=== PATIENT | female | born 1965 | race Two or more races ===

== ENCOUNTER 2025-01-23 13:20 | Inpatient (IN) | payer MEDICAID, OTHER ==
[~2025-01-23] VITALS: Ht 172.7 cm; Wt 77.2 kg
[2025-01-23] MEDS ORDERED: MORPHINE SULFATE 4 MG/ML SYR/VIAL IV ONE (13:45)
[2025-01-23 14:26] LABS: Hematocrit 42.0 % (36.0-46.0); Hemoglobin 14.1 g/dL (12.2-16.2); Mean Corpuscular Hemoglobin 30.7 pg (28.0-32.0); Mean Corpuscular Volume 91.6 fL (80.0-100.0); Nucleated Red Blood Cells % 0.0 %
[2025-01-23] MEDS: SODIUM CHLORIDE 0.9% 1,000 ML IVB ONE (14:33)
[2025-01-23] MEDS: ONDANSETRON HCL 4 MG/2 ML VIAL IV ONE (14:33)
[2025-01-23] MEDS: KETOROLAC TROMETH 30 MG/ML 1ML VIAL IV ONE (14:34)
[2025-01-23 14:44] LABS: Chloride 107 mmol/L (98-107); Potassium 3.7 mmol/L (3.5-5.1); Sodium 137 mmol/L (136-145)
[2025-01-23 14:45] LABS: Anion Gap 8 (5-15); Carbon Dioxide 22 mmol/L (20-31)
[2025-01-23 14:46] LABS: Calcium 8.8 mg/dL (8.7-10.4)
[2025-01-23 14:49] LABS: Urine Protein, UAD 1+ (Negative); Urine WBC Clumps PRESENT /hpf (None Seen)
[2025-01-23 14:50] LABS: Glucose 102 mg/dL (74-106)
[2025-01-23 14:51] LABS: BUN/Creatinine Ratio 10.4 (10.0-20.0); Blood Urea Nitrogen 10 mg/dL (9-23)
[2025-01-23] MEDS: CLINDAMYCIN 300MG IV 50 ML IV ONE (15:17)
--- NOTE | 2025-01-23 15:26 | ED.PDOC ---
History of Present Illness HPI Comments 59-year-old female brought by paramedics from [facility] because of kidney stone. Patient went to [facility] last night for severe flank pain 10/10 mostly in the right side. Flank pain associated with nausea vomiting. She was diagnosed with a 8 mm kidney stone for which the hospital did not have any facilities to handle. Patient had fentanyl EN route for pain control. Denies any other symptoms. 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 History Social History Smoker: Non-Smoker Alcohol: Denies ETOH Use Drugs: Denies Drug Use Constitutional: denies: chills, diaphoresis, fatigue, fever, malaise, sweats, weakness, others EENTM: denies: blurred vision, double vision, ear bleeding, ear discharge, ear drainage, ear pain, ear ringing, eye pain, eye redness, hearing loss, mouth pain, mouth swelling, nasal discharge, nose bleeding, nose congestion, nose pain, photophobia, tearing, throat pain, throat swelling, voice changes, others Respiratory: denies: cough, hemoptysis, orthopnea, SOB at rest, shortness of breath, SOB with excertion, stridor, wheezing, others Cardiovascular: denies: chest pain, dizzy spells, diaphoresis, Dyspnea on exertion, edema, irregular heart beat, left arm pain, lightheadedness, palpitations, PND, syncope, others Gastrointestinal: denies: abdomen distended, abdominal pain, blood streaked bowels, constipated, diarrhea, dysphagia, difficulty swallowing, hematemesis, melena, nausea, poor appetite, poor fluid intake, rectal bleeding, rectal pain, vomiting, others Genitourinary: reports: flank pain; denies: abnormal vagina bleeding, burning, dyspareunia, dysuria, frequency, hematuria, incontinence, pain, , vagina discharge, urgency, others Neurological: denies: dizziness, fainting, headache, left sided numbness, left sided weakness, numbness, paresthesia, pre-existing deficit, right sided numbness, right sided weakness, seizure, speech problems, tingling, tremors, weakness, others Musculoskeletal: denies: back pain, gout, joint pain, joint swelling, muscle pain, muscle stiffness, neck pain, others Integumetry: denies: bruises, change in color, change in hair/nails, dryness, laceration, lesions, lumps, rash, wounds, others Allergic/Immunocompromised: denies: Difficulty Healing, Frequent Infections, Hives, Itching, others Hematologic/Lymphatic: denies: anemia, blood clots, easy bleeding, easy bruising, swollen glands, others Endocrine: denies: excessive hunger, excessive sweating, excessive thirst, excessive urination, flushing, intolerance to cold, intolerance to heat, unexplained weight gain, unexplained weight loss, others Psychiatric: denies: anxiety, bipolar disorder, depression, hopeless, panic disorder, schizophrenia, sleepless, suicidal, others Physical Exam General Appearance: Moderate Distress HEENT: Normal ENT Inspection, Pharynx Normal, TMs Normal Neck: Full Range of Motion, Non-Tender, Normal, Normal Inspection Respiratory: Chest Non-Tender, Lungs Clear, No Accessory Muscle Use, No Respiratory Distress, Normal Breath Sounds Cardiovascular: No Edema, No JVD, No Murmur, No Gallop, Normal Peripheral Pulses, Regular Rate/Rhythm Breast Exam: Deferred Gastrointestinal: No Organomegaly, Non Tender, No Pulsatile Mass, Normal Bowel Sounds, Soft Genitalia: Deferred Pelvic: Deferred Rectal: Deferred Extremities: No calf tenderness, Normal capillary refill, Normal inspection, Normal range of motion, Non-tender, No pedal edema Musculoskeletal : Apperance: Normal Neurologic: Alert, back wedger II-XII nml as Tested, No Motor Deficits, Normal Affect, Normal Mood, No Sensory Deficits Cerebellar Function: Normal Reflexes: Normal Skin: Dry, Normal Color, Warm Peripheral Pulses: 3+ Radial (R), 3+ Radial (L) Lymphatic: No Adenopathy Was a procedure done? Was a procedure done?: No Differential Dx Considerations may include: Kidney stone Electrolyte imbalance X-Ray, Labs, Meds, VS Vital Signs Date Time Temp Pulse Resp B/P (MAP) Pulse Ox O2 Delivery O2 Flow Rate FiO2 01/23/25 14:24 132 18 97 Room Air 0 01/23/25 14:17 98.0 128 18 96/64 (75) 97 98.0 01/23/25 13:29 99.3 127 21 104/17 98 99.3 Lab Test 01/23/25 14:40 01/23/25 14:29 01/23/25 14:03 Range/Units Lactic Acid Level Pending Urine Color Yesi H Yellow Urine Clarity Cloudy H Clear Urine pH 6.0 5.0-9.0 Urine Specific [place] 1.015 1.001-1.035 Urine Protein 1+ H Negative Urine Ketones 1+ H Negative Urine Blood 3+ H Negative /uL Urine Nitrite 2+ H Negative Urine Bilirubin Negative Negative Urine Urobilinogen Normal Negative mg/dL Urine Leukocyte Esterase 3+ Negative /uL Urine RBC 385 0 - 4 /hpf Urine WBC Clumps Present None Seen /hpf Urine Microscopic WBC 994 H 0-5 /HPF Urine Squamous Epithelial Cells Few <5 /hpf Urine Bacteria Few H None Seen /hpf Urine Glucose Normal Normal mg/dL White Blood Count 15.2 H 4.4-10.8 10^3/uL Red Blood Count 4.58 4.0-5.20 10^6/uL Hemoglobin 14.1 12.2-16.2 g/dL Hematocrit 42.0 36.0-46.0 % Mean Corpuscular Volume 91.6 80.0-100.0 fL Mean Corpuscular Hemoglobin 30.7 28.0-32.0 pg Mean Corpuscular Hemoglobin Concent 33.5 32.0-36.0 g/dL Red Cell Distribution Width 12.9 11.8-14.3 % Platelet Count 176 140-450 10^3/uL Mean Platelet Volume 7.7 6.9-10.8 fL Neutrophils (%) (Auto) 82.3 H 37.0-80.0 % Lymphocytes (%) (Auto) 7.1 L 10.0-50.0 % Monocytes (%) (Auto) 10.3 0.0-12.0 % Eosinophils (%) (Auto) 0.1 0.0-7.0 % Basophils (%) (Auto) 0.2 0.0-2.0 % Neutrophils # (Auto) 12.5 H 1.6-8.6 10 ^3/uL Lymphocytes # (Auto) 1.1 0.4-5.4 10 ^3/uL Monocytes # (Auto) 1.6 H 0-1.3 10 ^3/uL Eosinophils # (Auto) 0 0-0.8 10 ^3/uL Basophils # (Auto) 0 0-0.2 10 ^3/uL Nucleated Red Blood Cells 0.0 % Sodium Level 137 136-145 mmol/L Potassium Level 3.7 3.5-5.1 mmol/L Chloride Level 107 98-107 mmol/L Carbon Dioxide Level 22 20-31 mmol/L Anion Gap 8 5-15 Blood Urea Nitrogen 10 9-23 mg/dL Creatinine 0.96 0.550-1.02 mg/dL Glomerular Filtration Rate Calc 69 >90 mL/min BUN/Creatinine Ratio 10.4 10.0-20.0 Serum Glucose 102 74-106 mg/dL Calcium Level 8.8 8.7-10.4 mg/dL Current Medications Medications (Trade) Dose Ordered Sig/Mariann Route Start Time Stop Time Status Last Admin Ondansetron HCl (Zofran) 4 mg ONCE ONCE IV 01/23/25 13:45 01/23/25 13:46 DC 01/23/25 14:33 Sodium Chloride 1,000 ml @ 1,000 mls/hr Q1H ONCE IVB 01/23/25 13:45 01/23/25 14:44 DC 01/23/25 14:33 Ketorolac Tromethamine (Toradol Injection) 30 mg ONCE ONCE IV 01/23/25 14:30 01/23/25 14:31 DC 01/23/25 14:34 Ceftriaxone Sodium 50 ml @ 100 mls/hr ONCE ONCE IV 01/23/25 15:00 01/23/25 15:29 01/23/25 15:17 Clindamycin Phosphate 50 ml @ 50 mls/hr ONCE ONCE IV 01/23/25 15:00 01/23/25 15:59 01/23/25 15:17 Patient alert. Vitals stable. Complaining of have flank pain. Answering questions. Moving all extremities. Establish intravenous access. Was given fluids. Possible urosepsis. Was given Rocephin. Was given clindamycin. Reviewed her visit at other hospital. Urology consultation. Explained to the patient. Continue monitoring. Time of 1ST Reevaluation: 15:24 Reevaluation 1ST: Unchanged Patient Education/Counseling: Diagnosis, Treatment, Prognosis, Need For Follow Up Family Education/Counseling: No Family Present SEPSIS Sepsis Screen Date sepsis recognized/suspect: Jan 23, 2025 Time Sepsis recognized/suspect: 1333 Recent Procedure: No On Antibiotic Therapy: Yes Respiratory Rate >20: Yes Heart Rate >90: Yes Temp<36 C (96.8 F) or >38.3 C: No SBP <90 or MAP <65 mmHG: No New Acute Mental Status Change: No Is the patient on CPAP, BIPAP,: No Physician Orders Lactic Acid W/ Reflex Order (01/23/25 14:27) Blood Culture (01/23/25 14:27) Ceftriaxone 1gm/50ml (Rocephin) (01/23/25 15:00) Clindamycin 300mg Iv (Cleocin Iv) (01/23/25 15:00) Vital Signs Date Time Temp Pulse Resp B/P (MAP) Pulse Ox O2 Delivery O2 Flow Rate FiO2 01/23/25 14:24 132 18 97 Room Air 0 01/23/25 14:17 98.0 128 18 96/64 (75) 97 98.0 01/23/25 13:29 99.3 127 21 104/17 98 99.3 Laboratory Tests Test 01/23/25 14:03 01/23/25 14:40 White Blood Count 15.2 10^3/uL (4.4-10.8) H Lactic Acid Level Pending Medications Medications Dose Ordered Sig/Mariann Route Start Time Stop Time Status Last Admin Dose Admin Ceftriaxone Sodium 50 ml @ 100 mls/hr ONCE ONCE IV 01/23/25 15:00 01/23/25 15:29 01/23/25 15:17 Clindamycin Phosphate 50 ml @ 50 mls/hr ONCE ONCE IV 01/23/25 15:00 01/23/25 15:59 01/23/25 15:17 Ketorolac Tromethamine 30 mg ONCE ONCE IV 01/23/25 14:30 01/23/25 14:31 DC 01/23/25 14:34 Ondansetron HCl 4 mg ONCE ONCE IV 01/23/25 13:45 01/23/25 13:46 DC 01/23/25 14:33 Sodium Chloride 1,000 ml @ 1,000 mls/hr Q1H ONCE IVB 01/23/25 13:45 01/23/25 14:44 DC 01/23/25 14:33 Departure 1 Departure Time of Disposition: 15:26 Impression: Primary Impression: Kidney stone Disposition: ADMITTED INPATIENT Admit to: Med Surg Condition: Guarded Critical Care Note Critical Care Time?: Yes (90 min-critical care time only) Stability Stability form required: No Heart Score Heart Score: Heart Score Response (Comments) Value History N/A 0 EKG N/A 0 Age N/A 0 Risk Factors N/A 0 Troponin N/A 0 Total 0 JAYLAN LÓPEZ MD Jan 23, 2025 15:26
[2025-01-23] MEDS ORDERED: DOCUSATE SOD 100 MG CAP PO PRN (16:45)
[2025-01-23] MEDS ORDERED: KETOROLAC TROMETH 30 MG/ML 1ML VIAL IV PRN (16:45)
--- NOTE | 2025-01-23 17:32 | DVHHP2 ---
History of Present Illness Reason for Visit: Right flank pain History of Present Illness Courtney Urena is a 59-year-old female with no significant past medical history who was transferred from [facility] for kidney stones. Patient states she did have kidney stones a few months ago in August and she was seen [place]. The pain went away for months and then returned yesterday around 1400, with associated nausea and dark urine. She states the pain continued to worsen prompting her to go to the hospital. [facility] completed a CT scan that showed a 8mm UPJ stone on the right and a staghorn stone on the left. Past Surgical History: Tubal Ligation Smoke: <1 pack per day ALCOHOL: rare Drugs: Marijuana Lives: Friends Domestic Violence: Neg Review of Systems Constitutional: No: Fever, Chills, Sweats, Weakness, Malaise, Other Eyes: No: Pain, Vision change, Conjunctivae inflammation, Eyelid inflammation, Other, Redness ENT: No: Ear pain, Ear discharge, Nose pain, Nose discharge, Nose congestion, Mouth pain, Mouth swelling, Throat pain, Throat swelling, Other Respiratory: No: Cough, Dry, Shortness of breath, SOB with excertion, Wheezing, Hemoptysis, Pleuritic Pain, Sputum, Wheezing, Other Cardiovascular: No: Chest Pain, Palpitations, Orthopnea, Paroxysmal Noc. Dyspnea, Edema, Lt Headedness, Other Gastrointestinal: Nausea, Abdominal Pain; No: Vomiting, Diarrhea, Constipation, Melena, Hematochezia, Other Genitourinary: No Dysuria, No Frequency, No Incontinence; Hematuria; No Retention, No Other Musculoskeletal: back pain (right flank); No: other, neck pain, shoulder pain, arm pain, hand pain, leg pain, foot pain Skin: No: Rash, Lesions, Jaundice, Bruising, Other Neurological: No: Weakness, Numbness, Incoordination, Change in speech, Confusion, Seizures, Other Allergies: Coded Allergies: NO KNOWN ALLERGIES (Unverified , 01/23/25) Medications Current Medications Medications Dose Ordered Sig/Mariann Route Start Time Stop Time Status Last Admin Dose Admin Acetaminophen/ Hydrocodone Bitart 1 tab Q4HP PRN PO 01/23/25 16:45 UNV Ondansetron HCl 4 mg Q4HP PRN IV 01/23/25 16:45 UNV Exam Vital Signs Vital Signs Date Time Temp Pulse Resp B/P (MAP) Pulse Ox O2 Delivery O2 Flow Rate FiO2 01/23/25 16:37 98.2 106 18 90/63 (72) 99 98.2 01/23/25 14:24 Room Air 0 General Appearance: Alert, Oriented X3, Cooperative, mild distress HEENT: Atraumatic, PERRLA, Mucous membr. moist/pink Respiratory: Clear to auscultation, Normal air movement Cardiovascular: Regular rate, Normal S1, Normal S2, No murmurs Abdominal: Normal bowel sounds, Soft, Other (RLQ tenderness and right flank pain) Extremities: No clubbing, No cyanosis, No edema, Normal pulses, No tenderness/swelling Skin: No rashes, No breakdown, No significant lesion Neuro: Normal gait, Normal speech, Strength at 5/5 X4 ext Psych/Mental Status: Mental status NL, Mood NL Labs/Xrays Labs Test 01/23/25 14:40 01/23/25 14:29 01/23/25 14:03 Range/Units Lactic Acid Level 1.8 0.4-2.0 mmol/L Urine Color Yesi H Yellow Urine Clarity Cloudy H Clear Urine pH 6.0 5.0-9.0 Urine Specific [place] 1.015 1.001-1.035 Urine Protein 1+ H Negative Urine Ketones 1+ H Negative Urine Blood 3+ H Negative /uL Urine Nitrite 2+ H Negative Urine Bilirubin Negative Negative Urine Urobilinogen Normal Negative mg/dL Urine Leukocyte Esterase 3+ Negative /uL Urine RBC 385 0 - 4 /hpf Urine WBC Clumps Present None Seen /hpf Urine Microscopic WBC 994 H 0-5 /HPF Urine Squamous Epithelial Cells Few <5 /hpf Urine Bacteria Few H None Seen /hpf Urine Glucose Normal Normal mg/dL White Blood Count 15.2 H 4.4-10.8 10^3/uL Red Blood Count 4.58 4.0-5.20 10^6/uL Hemoglobin 14.1 12.2-16.2 g/dL Hematocrit 42.0 36.0-46.0 % Mean Corpuscular Volume 91.6 80.0-100.0 fL Mean Corpuscular Hemoglobin 30.7 28.0-32.0 pg Mean Corpuscular Hemoglobin Concent 33.5 32.0-36.0 g/dL Red Cell Distribution Width 12.9 11.8-14.3 % Platelet Count 176 140-450 10^3/uL Mean Platelet Volume 7.7 6.9-10.8 fL Neutrophils (%) (Auto) 82.3 H 37.0-80.0 % Lymphocytes (%) (Auto) 7.1 L 10.0-50.0 % Monocytes (%) (Auto) 10.3 0.0-12.0 % Eosinophils (%) (Auto) 0.1 0.0-7.0 % Basophils (%) (Auto) 0.2 0.0-2.0 % Neutrophils # (Auto) 12.5 H 1.6-8.6 10 ^3/uL Lymphocytes # (Auto) 1.1 0.4-5.4 10 ^3/uL Monocytes # (Auto) 1.6 H 0-1.3 10 ^3/uL Eosinophils # (Auto) 0 0-0.8 10 ^3/uL Basophils # (Auto) 0 0-0.2 10 ^3/uL Nucleated Red Blood Cells 0.0 % Sodium Level 137 136-145 mmol/L Potassium Level 3.7 3.5-5.1 mmol/L Chloride Level 107 98-107 mmol/L Carbon Dioxide Level 22 20-31 mmol/L Anion Gap 8 5-15 Blood Urea Nitrogen 10 9-23 mg/dL Creatinine 0.96 0.550-1.02 mg/dL Glomerular Filtration Rate Calc 69 >90 mL/min BUN/Creatinine Ratio 10.4 10.0-20.0 Serum Glucose 102 74-106 mg/dL Calcium Level 8.8 8.7-10.4 mg/dL Renal ultrasound ordered SEPSIS Sepsis Screen Date sepsis recognized/suspect: Jan 23, 2025 Time Sepsis recognized/suspect: 1616 Recent Procedure: No On Antibiotic Therapy: Yes Respiratory Rate >20: No Heart Rate >90: No Temp<36 C (96.8 F) or >38.3 C: No SBP <90 or MAP <65 mmHG: No New Acute Mental Status Change: No Is the patient on CPAP, BIPAP,: No Physician Orders Blood Culture (01/23/25 14:27) Admit (01/23/25 16:35) Code Status (01/23/25 16:35) Hydrocodone-Acet 5/325mg Tab ([place] 32 (01/23/25 16:45) Ondansetron Hcl (Zofran) (01/23/25 16:45) Docusate Sodium Capsule (Colace Capsule) (01/23/25 16:45) Complete Blood Count (01/24/25 04:00) Comprehensive Metabolic Panel (01/24/25 04:00) Condition: Serious (01/23/25 16:35) Acetaminophen Tablet (Tylenol Tablet) (01/23/25 16:45) Ketorolac Injection (Toradol Injection) (01/23/25 16:45) NS (01/23/25 16:45) NS (01/23/25 16:45) * Urology Consult (01/23/25 16:35) Strain All Urine For Stones (01/23/25 16:35) Kidney (01/23/25 16:35) Vital Signs Date Time Temp Pulse Resp B/P (MAP) Pulse Ox O2 Delivery O2 Flow Rate FiO2 01/23/25 16:37 98.2 106 18 90/63 (72) 99 98.2 01/23/25 15:45 111 16 99/72 (81) 96 01/23/25 15:16 121 17 105/62 (76) 95 01/23/25 14:24 132 18 97 Room Air 0 01/23/25 14:17 98.0 128 18 96/64 (75) 97 98.0 01/23/25 13:29 99.3 127 21 104/17 98 99.3 Laboratory Tests Test 01/23/25 14:03 01/23/25 14:40 White Blood Count 15.2 10^3/uL (4.4-10.8) H Lactic Acid Level 1.8 mmol/L (0.4-2.0) Medications Medications Dose Ordered Sig/Mariann Route Start Time Stop Time Status Last Admin Dose Admin Ceftriaxone Sodium 50 ml @ 100 mls/hr ONCE ONCE IV 01/23/25 15:00 01/23/25 15:29 DC 01/23/25 15:17 100 MLS/HR Clindamycin Phosphate 50 ml @ 50 mls/hr ONCE ONCE IV 01/23/25 15:00 01/23/25 15:59 DC 01/23/25 15:17 50 MLS/HR Ketorolac Tromethamine 30 mg ONCE ONCE IV 01/23/25 14:30 01/23/25 14:31 DC 01/23/25 14:34 30 MG Ondansetron HCl 4 mg ONCE ONCE IV 01/23/25 13:45 01/23/25 13:46 DC 01/23/25 14:33 4 MG Sodium Chloride 1,000 ml @ 1,000 mls/hr Q1H ONCE IVB 01/23/25 13:45 01/23/25 14:44 DC 01/23/25 14:33 1,000 MLS/HR Assessment/Plan Assessment/Plan Assessment: Renal calculus, Leukocytosis, UTI, Plan: Admit to Med-Surg, Urology consult, Renal ultrasound, IV antibiotics, IV hydration, Pain management, Antiemetics, Stain urine, Flomax not stated due to stone being in the UPJ, Plan discussed with: Patient My Orders Orders - RITA KOENIG Procedure Category Date Status Time Admit ADMIT 01/23/25 Transmitted 16:35 Code Status CODE 01/23/25 Transmitted 16:35 Hydrocodone-Acet PHA 01/23/25 Logged 5/325mg Tab (Cicero 16:45 Ondansetron Hcl PHA 01/23/25 Logged (Zofran) 16:45 Docusate Sodium PHA 01/23/25 Transmitted Capsule (Colace 16:45 Complete Blood Count LAB 01/24/25 Verified 04:00 Comprehensive LAB 01/24/25 Verified Metabolic Panel 04:00 Condition: Serious JOSE 01/23/25 In Process 16:35 Acetaminophen Tablet PHA 01/23/25 Transmitted (Tylenol Tablet) 16:45 Ketorolac Injection PHA 01/23/25 Transmitted (Toradol Injection) 16:45 NS PHA 01/23/25 Transmitted 16:45 NS PHA 01/23/25 Transmitted 16:45 * Urology Consult CONS 01/23/25 Transmitted 16:35 Strain All Urine For JOSE 01/23/25 In Process Stones 16:35 Kidney US 01/23/25 Logged 16:35 Date of Service: Jan 23, 2025 Billing Provider: RITA KOENIG Common Visit Codes: [id number] INP/OBS CARE (MOD) RITA KOENIG Jan 23, 2025 17:32
[2025-01-23] MEDS: SODIUM CHLORIDE 0.9% 1,000 ML IV ONE (17:54)
[2025-01-23] MEDS: SODIUM CHLORIDE 0.9% 1,000 ML IV SCH (17:54)
--- NOTE | 2025-01-23 18:18 | DVH ---
INDICATION: Renal calculus TECHNIQUE: Multiple real-time sonographic images of the kidneys and bladder were obtained. COMPARISON: None FINDINGS: The right kidney measures 13.9 cm in length, which is normal in size. Echogenic structures nonobstructing in the right kidney suggesting calculi/ findings suggest mild hydronephrosis There is normal echogenicity of the right kidney. The left kidney measures 11.7 cm which is normal in size. Echogenic structures in the left kidney suggest calculi. No hydronephrosis. There is normal echogenicity of the left kidney. No hydronephrosis. No large intraluminal masses are seen in the bladder. Prior to voiding the bladder volume measures volume 16 mL. Only left ureteral jet visualized in the bladder. Postvoid bladder image not received. IMPRESSION: 1. Right kidney measures 13.9 cm. Left kidney measures 11.7 cm. 2. Right hydronephrosis nonvisualization of the right ureteral jet in the bladder. 3. Left ureteral jet visualized in the bladder. 4. Nonobstructing calculi in the left kidney.
[2025-01-23 18:45] VITALS: BP 96/62; PULSE 89; RESP 14; TEMP 97.4; O2SAT 98
[2025-01-23] MEDS: HYDROcodone-ACET 5/325MG TAB PO PRN (19:51)
[2025-01-23 21:00] VITALS: BP 103/62; PULSE 107; RESP 19; TEMP 98.7; O2SAT 98
[2025-01-24 01:00] VITALS: BP 108/61; PULSE 72; RESP 16; TEMP 99.5; O2SAT 95
[2025-01-24] MEDS: ONDANSETRON HCL 4 MG/2 ML VIAL IV PRN (02:28)
[2025-01-24] MEDS: ACETAMINOPHEN 325 MG TAB PO PRN (03:28)
[2025-01-24 05:00] VITALS: BP 109/61; PULSE 103; RESP 18; TEMP 98.2; O2SAT 97
[2025-01-24 06:55] LABS: Hematocrit 39.7 % (36.0-46.0); Hemoglobin 13.2 g/dL (12.2-16.2); Mean Corpuscular Hemoglobin 30.7 pg (28.0-32.0); Mean Corpuscular Volume 92.1 fL (80.0-100.0); Nucleated Red Blood Cells % 0.1 %
[2025-01-24 07:05] LABS: Alanine Aminotransferase 16 U/L (7-40); Albumin 3.5 g/dL (3.2-4.8); Anion Gap 8 (5-15); BUN/Creatinine Ratio 10.5 (10.0-20.0); Bilirubin, Total 0.4 mg/dL (0.2-1.0); Blood Urea Nitrogen 10 mg/dL (9-23); Carbon Dioxide 22 mmol/L (20-31); Glucose 93 mg/dL (74-106); Potassium 3.8 mmol/L (3.5-5.1); Sodium 139 mmol/L (136-145); Total Protein 6.2 g/dL (5.7-8.2)
[2025-01-24 07:11] LABS: Calcium 8.4 mg/dL (8.7-10.4); Chloride 109 mmol/L (98-107)
[2025-01-24 07:34] LABS: Alkaline Phosphatase 81 U/L (46-116)
[2025-01-24 08:00] VITALS: BP 120/72; PULSE 99; RESP 16; TEMP 98.1; O2SAT 96
[2025-01-24 12:59] VITALS: BP 127/67; PULSE 97; RESP 17; TEMP 98.1; O2SAT 98
--- NOTE | 2025-01-24 13:24 | DVHPN2 ---
Eyes: No Pain, No Vision change, No Conjunctivae inflammation, No Eyelid inflammation, No Other, No Redness ENT: No Ear pain, No Ear discharge, No Nose pain, No Nose discharge, No Nose congestion, No Mouth pain, No Mouth swelling, No Throat pain, No Throat swelling, No Other Cardiovascular: No Chest Pain, No Palpitations, No Orthopnea, No Paroxysmal Noc. Dyspnea, No Edema, No Lt Headedness, No Other Respiratory: No Cough, No Dry, No Shortness of breath, No SOB with excertion, No Wheezing, No Hemoptysis, No Pleuritic Pain, No Sputum, No Other Gastrointestinal: Nausea; No Vomiting; Abdominal Pain; No Diarrhea, No Constipation, No Melena, No Hematochezia, No Other Genitourinary: No Dysuria, No Frequency, No Incontinence; Hematuria; No Retention, No Other Musculoskeletal: No other, No neck pain, No shoulder pain, No arm pain; back pain (right flank); No hand pain, No leg pain, No foot pain Skin: No Rash, No Lesions, No Jaundice, No Bruising, No Other Objective Vitals Vital Signs Date Time Temp Pulse Resp B/P (MAP) Pulse Ox O2 Delivery O2 Flow Rate FiO2 01/24/25 12:59 98.1 97 17 127/67 (87) 98 98.1 01/23/25 20:00 Room Air* 0 21 Intake/Output Intake and Output 01/24/25 07:00 Intake Total 1350 ml Output Total 950 ml Balance 400 ml Intake Oral 250 ml IV Total 1100 ml Output Urine Total 950 ml Medications Current Medications Medications Dose Ordered Sig/Mariann Route Start Time Stop Time Status Last Admin Dose Admin Acetaminophen/ Hydrocodone Bitart 1 tab Q4HP PRN PO 01/23/25 16:45 01/24/25 12:51 1 TAB Ondansetron HCl 4 mg Q4HP PRN IV 01/23/25 16:45 01/24/25 02:28 4 MG Docusate Sodium 100 mg BIDPRN PRN PO 01/23/25 16:45 Acetaminophen 650 mg Q6HP PRN PO 01/23/25 16:45 01/24/25 03:28 650 MG Ketorolac Tromethamine 30 mg Q6HPRN PRN IV 01/23/25 16:45 01/28/25 16:44 Sodium Chloride 1,000 ml @ 125 mls/hr Q8H IV 01/23/25 16:45 01/24/25 00:45 125 MLS/HR Ceftriaxone Sodium 50 ml @ 100 mls/hr DAILY@09 IV 01/24/25 09:00 01/24/25 08:23 100 MLS/HR Laboratory Results Laboratory Tests 01/24/25 06:32 Chemistry Test 01/23/25 14:03 01/24/25 06:32 Calcium Level 8.8 mg/dL (8.7-10.4) 8.4 mg/dL (8.7-10.4) L Albumin 3.5 g/dL (3.2-4.8) Total Protein 6.2 g/dL (5.7-8.2) LFT Test 01/24/25 06:32 Alanine Aminotransferase (ALT) 16 U/L (7-40) Alkaline Phosphatase 81 U/L (46-116) Aspartate Amino Transferase (AST) 19 U/L (13-40) Total Bilirubin 0.4 mg/dL (0.2-1.0) Urinalysis Test 01/23/25 14:29 Urine Color Yesi (Yellow) H Urine Clarity Cloudy (Clear) H Urine pH 6.0 (5.0-9.0) Urine Specific [place] 1.015 (1.001-1.035) Urine Protein 1+ (Negative) H Urine Ketones 1+ (Negative) H Urine Blood 3+ /uL (Negative) H Urine Nitrite 2+ (Negative) H Urine Bilirubin Negative (Negative) Urine Urobilinogen Normal mg/dL (Negative) Urine Leukocyte Esterase 3+ /uL (Negative) Urine RBC 385 /hpf (0 - 4) Urine WBC Clumps Present /hpf (None Seen) Urine Microscopic WBC 994 /HPF (0-5) H Urine Squamous Epithelial Cells Few /hpf (<5) Urine Bacteria Few /hpf (None Seen) H Urine Glucose Normal mg/dL (Normal) SAVANAH SHUKLA MD Jan 24, 2025 13:24
--- NOTE | 2025-01-24 14:59 | DVH ---
EXAM: CT HEAD WITHOUT CONTRAST INDICATION: RO stroke COMPARISON: None TECHNIQUE: CT of the head without intravenous contrast. Radiation Dose Information: CT Dose: CTDI volume is 56 mGy. Dose-length product is 1061 mGy*cm The dose indicators for CT are the volume Computed Tomography (CT) Dose Index (CTDIvol) and the Dose Length Product (DLP), and are measured in units of mGy and mGy-cm, respectively. These indicators are not patient dose, but values generated from the CT scanner acquisition factors. The report includes radiation exposure data for exposures received during this examination. Findings: The ventricles and sulci are normal in size and configuration for the patient's age. There is no mass-effect, hemorrhage, midline shift, or abnormal extra-axial fluid collection visible. No calvarial fracture. Essentially clear visualized paranasal sinuses. Mastoid air cells are clear. IMPRESSION: No acute intracranial hemorrhage or mass effect. Recommend MRI brain to assess for acute infarct if there is persistent clinical concern.
--- NOTE | 2025-01-24 22:39 | DVHDS2 ---
Discharge Summary Date of Admission Jan 23, 2025 at 16:35 Date of Discharge: Jan 24, 2025 Admitting Diagnosis Renal calculus, Leukocytosis, UTI, Labs/Diagnostic Data: Laboratory Results Test 01/24/25 06:32 01/23/25 14:40 01/23/25 14:29 White Blood Count 16.8 10^3/uL (4.4-10.8) Red Blood Count 4.30 10^6/uL (4.0-5.20) Hemoglobin 13.2 g/dL (12.2-16.2) Hematocrit 39.7 % (36.0-46.0) Mean Corpuscular Volume 92.1 fL (80.0-100.0) Mean Corpuscular Hemoglobin 30.7 pg (28.0-32.0) Mean Corpuscular Hemoglobin Concent 33.4 g/dL (32.0-36.0) Red Cell Distribution Width 13.1 % (11.8-14.3) Platelet Count 149 10^3/uL (140-450) Mean Platelet Volume 7.9 fL (6.9-10.8) Neutrophils (%) (Auto) 74.9 % (37.0-80.0) Lymphocytes (%) (Auto) 10.7 % (10.0-50.0) Monocytes (%) (Auto) 14.0 % (0.0-12.0) Eosinophils (%) (Auto) 0.1 % (0.0-7.0) Basophils (%) (Auto) 0.3 % (0.0-2.0) Neutrophils # (Auto) 12.6 10 ^3/uL (1.6-8.6) Lymphocytes # (Auto) 1.8 10 ^3/uL (0.4-5.4) Monocytes # (Auto) 2.4 10 ^3/uL (0-1.3) Eosinophils # (Auto) 0 10 ^3/uL (0-0.8) Basophils # (Auto) 0 10 ^3/uL (0-0.2) Nucleated Red Blood Cells 0.1 % Sodium Level 139 mmol/L (136-145) Potassium Level 3.8 mmol/L (3.5-5.1) Chloride Level 109 mmol/L (98-107) Carbon Dioxide Level 22 mmol/L (20-31) Anion Gap 8 (5-15) Blood Urea Nitrogen 10 mg/dL (9-23) Creatinine 0.95 mg/dL (0.550-1.02) Glomerular Filtration Rate Calc 69 mL/min (>90) BUN/Creatinine Ratio 10.5 (10.0-20.0) Serum Glucose 93 mg/dL (74-106) Calcium Level 8.4 mg/dL (8.7-10.4) Total Bilirubin 0.4 mg/dL (0.2-1.0) Aspartate Amino Transferase (AST) 19 U/L (13-40) Alanine Aminotransferase (ALT) 16 U/L (7-40) Alkaline Phosphatase 81 U/L (46-116) Total Protein 6.2 g/dL (5.7-8.2) Albumin 3.5 g/dL (3.2-4.8) Lactic Acid Level 1.8 mmol/L (0.4-2.0) Urine Color [place] (Yellow) Urine Clarity Cloudy (Clear) Urine pH 6.0 (5.0-9.0) Urine Specific [place] 1.015 (1.001-1.035) Urine Protein 1+ (Negative) Urine Ketones 1+ (Negative) Urine Blood 3+ /uL (Negative) Urine Nitrite 2+ (Negative) Urine Bilirubin Negative (Negative) Urine Urobilinogen Normal mg/dL (Negative) Urine Leukocyte Esterase 3+ /uL (Negative) Urine RBC 385 /hpf (0 - 4) Urine WBC Clumps Present /hpf (None Seen) Urine Microscopic WBC 994 /HPF (0-5) Urine Squamous Epithelial Cells Few /hpf (<5) Urine Bacteria Few /hpf (None Seen) Urine Glucose Normal mg/dL (Normal) Other Laboratory Tests 01/24/25 06:32 Brief Hx & Hospital Course: . This is a 59 years old female with no known past medical history was transfer from [facility] for kidney stone. The patient said she had kidney stone a few months ago in August and was seen [place]. The patient said the pain went away however come back on the day of admission to [facility]. Associated with nausea and dark urine. The patient said the pain continuing to worsening that prompt her to go to the hospital. The patient had a CT scan done showed 8 mm UVJ stone on the right in the [place] stone on the left. The patient was transferred here for further management of her kidney stone because there is no urologist in her hospital. Ultrasound showed: Right kidney measures 13.9 cm. Left kidney measures 11.7 cm. Right hydronephrosis nonvisualization of the right ureteral jet in the bladder. Left ureteral jet visualized in the bladder. Nonobstructing calculi in the left kidney. The patient also was found to have urinary tract infection. The patient was put on IV antibiotic Rocephin and also urology was consulted. Pain controlled with pain medication was given. The patient however decided to leave against medical advice. The patient verbally understand that without further treatment and with the hydronephrosis of the kidney she can suffer from kidney failure, infection, and even sepsis due to UTI but she still decided to leave against medical advice. Physical exam: HEENT: Normocephalic atraumatic pupils equal react to light and accommodation. Extraocular muscles intact, conjunctiva pink, oropharynx moist, no thrush, no exudate. Lymphatic: No lymphadenopathy Cardiovascular exam: S1, S2 was heard. No murmurs, rubs, gallops Lung: Clear on auscultation bilaterally, no wheeze, rale, rhonchi. GI: Abdominal soft, nondistended, nontenderness, positive bowel sounds. Extremity: No crepitus, cyanosis, edema. Pedal pulses present bilateral. Full range of motion. Skin: Normal turgor, no rash. Psych: Alert, oriented x3. Neurology: No focal deficits, cranial nerve II to XII grossly intact. This medical document was created using an electronic medical record system with [employer] direct computerized dictation system. Although this document has been carefully reviewed, there may still be some phonetic and typographical errors. These areas are purely typographical due to imperfections of the software programs, and do not reflect any compromise in the patient's medical care. Condition at Discharge: Guarded Final Diagnosis/Problems List Renal calculus, Leukocytosis, UTI, Discharge Disposition: AMA Discharge Instruct/Medications No Active Prescriptions or Reported Meds Discharge Statement: "Patient was advised to return to the ER or call 911 if any headaches, dizziness, shortness of breath, chest pain, abdominal pain, bleeding, fevers, or worsening of medical condition. Patient was counseled about treatment plan, medications, possible side effects, patientverbalized understanding. All questions were answered to the best of my ability. This discharge took greater then 30 minutes in planning, reviewing documentation, counseling the patient, and discussing with other team members." ASSESSMENT ASSESSMENT Assessment Date of Service: Jan 24, 2025 Billing Provider: SAVANAH SHUKLA MD Common Visit Codes: 64270-FRF/OBS DISCH DAY >30min SAVANAH SHUKLA MD Jan 24, 2025 22:39
== END 2025-01-24 16:53 | disposition left against medical advice (07) | DRG 463 ==
LOC: ER 13:20 → EDBD 13:20 → OVERFLOW 16:35
PROVIDERS: ADMIT Nurse Practitioner Family; ATTEND Nurse Practitioner Family
DX: N13.6 Pyonephrosis (principal); Z53.29 Procedure and treatment not carried out because of patient's decision for other reasons; Z87.442 Personal history of urinary calculi; Z87.891 Personal history of nicotine dependence; Z79.899 Other long term (current) drug therapy
CPT/HCPCS: 36415; 70450; 76775; 80048; 80053; 81001; 83605; 85025; 87040; 99291; 99292; G0378; J1885; J2405; J3490